=== PATIENT | male | born 1990 | race Hispanic/Latino ===

== ENCOUNTER 2019-08-09 10:03 | Emergency (ER) | payer BC ==
[~2019-08-09] VITALS: Ht 177.8 cm; Wt 137.9 kg
[2019-08-09 10:17] VITALS: BP 142/91
[2019-08-09 10:19] VITALS: BP 142/91
[2019-08-09 10:20] VITALS: BP 142/91
[2019-08-09] MEDS ORDERED: DECADRON IH STA (10:20)
[2019-08-09] MEDS ORDERED: MORPHINE SULFATE IV STA (10:20)
[2019-08-09] MEDS ORDERED: DUO 0.5-3(2.5) MG/3 ML IH STA (10:20)
[2019-08-09] MEDS ORDERED: ZOFRAN 4 MG/2 ML VIAL IV STA (10:20)
--- NOTE | 2019-08-09 10:21 | NUR ---
ARRIVAL PATIENT ARRIVED TO [facility] AMBULATORY WITH FAMILY, C/O OF NAUSEA,VOMITING AND BODY ACHES SINCE LAST NIGHT, MOTHER STATES PATIENT HAS BEEN COUGHING SOME TOO, CAME TODAY TO THE ED FOR EVAL.
[2019-08-09] MEDS ORDERED: ZOFRAN 4 MG/2 ML VIAL ONE (10:24)
[2019-08-09] MEDS ORDERED: MORPHINE SULFATE ONE (10:24)
[2019-08-09] MEDS ORDERED: NS 1000ML 2,000 ML ONE (10:24)
--- NOTE | 2019-08-09 10:27 | ER.PDOC ---
General Chief Complaint: Nausea,Vomiting,Diarrhea Stated Complaint: NAUSEA AND VOMITING, cough, dyspnea Time seen by MD: 10:22 Source: patient Exam Limitations: no limitations History of Present Illness Timing/Duration: gradual Severity: moderate Associated Symptoms: fever/chills, cough, chest pain, mild SOB Worsen By: deep breathing Allergies: Coded Allergies: No Known Allergies (Unverified , 08/09/19) All Other Systems: Reviewed and Negative Past Medical History Medical History: GERD, hypertension, other Surgical History: knee Social History Smoking: cigarettes Alcohol Use: none Drug Use: none Reviewed Nursing Reviewed: Vital Signs, Abn. Noted Physical Exam General Appearance: alert, no distress Eye: eyes nml inspection, lids & conjunct. nml, PERRL, no nystagmus Ear: ear nml Nose: nose nml Throat: pharynx nml, airway nml Neck: nml inspection, supple Respiratory: rhonchi Abdomen: non-tender, no organomegaly CVS: tachycardia Skin: color nml, no rash, warm/dry Extremities: non-tender, nml ROM, no pedal edema NEURO/PSYCH: oriented x 3, CN's nml as tested, motor nml, sensation nml, mood/affect nml Results/Orders Results/Orders Orders - SAGAR MONTIEL MD Cbc With Auto Diff (08/09/19 10:20) Comprehensive Metabolic Panel (08/09/19 10:20) Amylase (08/09/19 10:20) Lipase (08/09/19 10:20) Lactic Acid(Ml) (08/09/19 10:20) 0.9 % Sodium Chloride (Ns 1000ml) (08/09/19 10:30) 0.9 % Sodium Chloride (Ns 1000ml) (08/09/19 10:30) Morphine Sulfate (Morphine Sulfate) (08/09/19 10:20) Xr Chest 2v (08/09/19 10:20) Ondansetron Hcl/Pf (Zofran 4 Mg/2 Ml Via (08/09/19 10:20) Ipratropium/Albuterol Sulfate (Duo 0.5-3 (08/09/19 10:20) Dexamethasone Sodium Phosphate (Decadron (08/09/19 10:20) Ekg-Routine (08/09/19 10:26) Vital Signs Date Time Temp Pulse Resp B/P (MAP) Pulse Ox O2 Delivery O2 Flow Rate FiO2 08/09/19 11:01 98.8 115 20 113/62 (79) 91 Room Air 08/09/19 10:20 98.8 115 20 142/91 (108) 91 Room Air 08/09/19 10:19 98.8 115 20 08/09/19 10:17 98.8 115 20 91 Room Air Administered Medications Medications (Trade) Dose Ordered Sig/Ceci Route PRN Reason Start Time Stop Time Status Last Admin Dose Admin Morphine Sulfate (Morphine Sulfate) 4 mg STAT STAT IV 08/09/19 10:20 08/09/19 10:25 DC 08/09/19 10:49 4 MG Ondansetron HCl (Zofran 4 Mg/2 ml Vial) 4 mg STAT STAT IV 08/09/19 10:20 08/09/19 10:26 DC 08/09/19 10:48 4 MG Sodium Chloride 1,000 ml @ 0 mls/hr Q0M ONCE IV 08/09/19 10:30 08/09/19 10:31 DC 08/09/19 10:30 1,200 MLS/HR Sodium Chloride 1,000 ml @ 0 mls/hr Q0M ONCE IV 08/09/19 10:30 08/09/19 10:31 DC 08/09/19 11:30 1,200 MLS/HR Laboratory Tests Test 08/09/19 10:30 White Blood Count 10.5 10^3/uL (4.5-11.0) Red Blood Count 5.64 10^6/uL (4.50-5.90) Hemoglobin 14.0 g/dL (13.9-16.3) Hematocrit 44.6 % (37.0-53.0) Mean Corpuscular Volume 79.1 fL (78-100) Mean Corpuscular Hemoglobin 24.8 pg (26-34) L Mean Corpuscular Hemoglobin Concent 31.4 g/dL (33-37) L Red Cell Distribution Width 16.0 % (11.5-14.5) H Platelet Count 402 10^3/uL (150-400) H Mean Platelet Volume 9.5 fL (7.8-11.0) Neutrophils (%) (Auto) 85.3 % (41.0-85.0) H Lymphocytes (%) (Auto) 7.8 % (24.0-44.0) L Monocytes (%) (Auto) 6.2 % (5.0-12.0) Neutrophils # (Auto) 9.0 10^3/uL (1.8-7.7) H Lymphocytes # (Auto) 0.8 10^3/uL (1.0-4.8) L Monocytes # (Auto) 0.7 10^3/uL (0.3-0.8) Absolute Immature Granulocyte (auto 0.04 10^3 u/L (0-2) Immature Granulocytes % 0.40 % (0.00-0.50) Eosinophils % 0.2 % (0.0-5.0) Basophils % 0.1 % (0.0-0.2) Basophils # 0.0 10^3/uL (0.0-0.1) Eosinophil Count 0.0 10^3/uL (0.0-0.2) Sodium Level 136 mmol/L (132-145) Potassium Level 3.5 mmol/L (3.6-5.2) L Chloride Level 103.0 mmol/L (96-109) Carbon Dioxide Level 24.0 mmol/L (20.0-32) Anion Gap 12.5 Blood Urea Nitrogen 10 mg/dL (7-18) Creatinine 1.11 mg/dL (0.59-1.40) Estimated GFR () 96.2 (>/=60) BUN/Creatinine Ratio 9.0 Glucose Level 88 mg/dL (70-110) Lactic Acid Level 1.2 mmol/L (0.50-2.00) Calcium Level 8.3 mg/dL (8.4-10.5) L Total Bilirubin 2.4 mg/dL (0.2-1.0) H Aspartate Amino Transferase (AST) 25 U/L (0-35) Alanine Aminotransferase (ALT) 26 U/L (12-78) Alkaline Phosphatase 87 U/L (50-136) Total Protein 7.4 g/dL (6.4-8.2) Albumin 3.4 g/dL (3.4-5.0) Globulin 4.0 Amylase Level 68 U/L (25-115) Lipase 180 U/L (114-286) Departure Time of Disposition: 11:55 Disposition: 01 HOME, SELF-CARE Impression: Primary Impression: Bronchitis Condition: Improved Referrals: PCP,UNKNOWN (PCP) PRIMARY CARE PROVIDER Duration or Time Spent with Pa: 30 m SAGAR MONTIEL MD Aug 09, 2019 10:27
[2019-08-09] MEDS ORDERED: NS 1000ML 1,000 ML IV ONE ×2 (10:30)
[2019-08-09 10:40] LABS: BASOPHIL % 0.1 % (0.0-0.2); EOSINOPHIL % 0.2 % (0.0-5.0); LYMPHOCYTES # 0.8 10^3/uL (1.0-4.8); LYMPHOCYTES % 7.8 % (24.0-44.0); MEAN CELL HGB 24.8 pg (26-34); MEAN CELL HGB CONCENTRATION 31.4 g/dL (33-37); MEAN CORP VOLUME 79.1 fL (78-100); MEAN PLATELET VOLUME 9.5 fL (7.8-11.0); MONOCYTES # 0.7 10^3/uL (0.3-0.8); MONOCYTES % 6.2 % (5.0-12.0); NEUTROPHILS % 85.3 % (41.0-85.0); WHITE BLOOD CELL 10.5 10^3/uL (4.5-11.0)
--- NOTE | 2019-08-09 10:40 | PCM.EKG ---
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
--- NOTE | 2019-08-09 10:53 | NUR ---
RADIOLOGY PATIENT TO AND FROM RADIOLOGY WITH SUE HERNANDEZ FROM RADIOLOGY.
[2019-08-09 10:58] LABS: CALCIUM 8.3 mg/dL (8.4-10.5)
[2019-08-09 11:01] VITALS: BP 113/62
--- NOTE | 2019-08-09 11:15 | DIREP ---
PROCEDURE:CHEST 2 VIEWS COMPARISON:[facility], CR, XRAY CHEST 2 VWS, 12/09/2018, 07:45 PM. INDICATIONS:cough, fever, dyspnea FINDINGS: LUNGS/PLEURA:No significant pulmonary parenchymal abnormalities. No effusions. VASCULATURE:Normal. Unremarkable pulmonary vasculature. CARDIAC:Normal. No cardiac silhouette abnormality or cardiomegaly. MEDIASTINUM:Normal. No visible mass or adenopathy. BONES:Normal. No fracture or visible bony lesion. OTHER:Negative. CONCLUSION:Normal examination. Dictated by: James Jackson MD on 08/09/2019 at 11:14 AM
[2019-08-09 11:51] VITALS: BP 113/62
[2019-08-09 12:06] VITALS: BP 113/62
== END 2019-08-09 12:01 | disposition home or self-care (01) ==
LOC: ER 10:03
DX: J40 Bronchitis, not specified as acute or chronic (principal); R11.2 Nausea with vomiting, unspecified; F17.210 Nicotine dependence, cigarettes, uncomplicated; I10 Essential (primary) hypertension
CPT/HCPCS: 36415; 71046; 80053; 82150; 83605; 83690; 85025; 93005; 96361 ×2; 96374; 96375; 99285; J2270; J2405; J7030; 96360